=== PATIENT | male | born 1985 | race Two or more races ===

== ENCOUNTER 2018-04-08 02:28 | Emergency (ER) | payer SELFPAY ==
[2018-04-08] MEDS ORDERED: Tdap Vaccine 0.5 ml Vial (10-64 yrs) IM ONE ×2 (03:06→07:20)
--- NOTE | 2018-04-08 03:06 | ED PDOC ---
HPI: Psych/Substance Abuse Chief Complaint (Provider): PSYCH EVAL History Per: Patient (32 Y/O MALE HERE FOR EVALUATION OF CUTTING SELF LEFT ARM TODAY. ADMITS ETOH. DENIES ANY SUICIDAL IDEATION. STATES HIS CALLED AMBULANCE.) <Ezra Gibbs - Last Filed: 04/08/18 06:17> <Lima Adrian - Last Filed: 04/09/18 19:35> Time Seen by Provider: 04/08/18 03:05 Chief Complaint (Nursing): Psychiatric Evaluation Past Medical History Reviewed: Historical Data, Nursing Documentation, Vital Signs Vital Signs: Last Vital Signs Temp 97.6 F 04/08/18 02:40 Pulse 78 04/08/18 02:40 Resp 18 04/08/18 02:40 BP 113/76 04/08/18 02:40 Pulse Ox 99 04/08/18 02:40 - Family History Family History: States: No Known Family Hx <Ezra Gibbs - Last Filed: 04/08/18 06:17> Reviewed: Historical Data Vital Signs: Last Vital Signs Temp 97.7 F 04/08/18 07:50 Pulse 75 04/08/18 07:50 Resp 16 04/08/18 07:50 BP 113/75 04/08/18 07:50 Pulse Ox 97 04/08/18 07:50 - Medical History PMH: No Chronic Diseases - Surgical History Surgical History: No Surg Hx <Lima Adrian A - Last Filed: 04/09/18 19:35> - Allergies Allergies/Adverse Reactions: Allergies Allergy/AdvReac Type Severity Reaction Status Date / Time Unobtainable Allergy Verified 04/08/18 03:02 Review of Systems ROS Statement: Except As Marked, All Systems Reviewed And Found Negative <Ezra Gibbs - Last Filed: 04/08/18 06:17> ROS Statement: Except As Marked, All Systems Reviewed And Found Negative <Lima Adrian - Last Filed: 04/09/18 19:35> Physical Exam - Reviewed Nursing Documentation Reviewed: Yes Vital Signs Reviewed: Yes - Physical Exam Appears: Positive for: Well, Non-toxic, No Acute Distress Head Exam: Positive for: ATRAUMATIC, NORMAL INSPECTION, NORMOCEPHALIC Skin: Positive for: Normal Color, Warm, DRY Eye Exam: Positive for: EOMI, Normal appearance, PERRL ENT: Positive for: Normal ENT Inspection Neck: Positive for: Normal, Painless ROM Cardiovascular/Chest: Positive for: Regular Rate, Rhythm Respiratory: Positive for: CNT, Normal Breath Sounds Gastrointestinal/Abdominal: Positive for: Normal Exam, Soft Back: Positive for: Normal Inspection Extremity: Positive for: Normal ROM, Other (MULTIPLE SUPERFICIAL ABRASIONS NOTED LEFT DISTAL FOREARM.) Neurologic/Psych: Positive for: Alert, Oriented <Ezra Gibbs - Last Filed: 04/08/18 06:17> - Reviewed Nursing Documentation Reviewed: Yes <Lima Adrian - Last Filed: 04/09/18 19:35> - Laboratory Results Result Diagrams: 04/08/18 03:58 04/08/18 03:58 - ECG O2 Sat by Pulse Oximetry: 99 <Ezra Gibbs - Last Filed: 04/08/18 06:17> - Laboratory Results Result Diagrams: 04/08/18 03:58 04/08/18 03:58 <Lima Adrian - Last Filed: 04/09/18 19:35> Disposition - Patient ED Disposition Is Patient to be Admitted: Transfer of Care - Disposition Disposition Time: 06:15 Patient Signed Over To: Lima Adrian Handoff Comments: PENDING CRISIS EVAL <Ezra Gibbs - Last Filed: 04/08/18 06:17> Counseled Patient/Family Regarding: Studies Performed, Diagnosis - Disposition Disposition: Transfer of Care Patient Signed Over To: Nick Ash <Lima Adrian - Last Filed: 04/09/18 19:35> - Clinical Impression Clinical Impression: Deliberate self-cutting, Alcohol ingestion, Adjustment disorder - Disposition Referrals: [facility] [Outside] Condition: FAIR Instructions: Adjustment Disorder Forms: [employer] (Welsh)
[2018-04-08 04:12] LABS: BASO % 0.3 % (0.0-2.0); EOS % 0.5 % (0.0-4.0); HEMOGLOBIN 16.4 g/dL (12.0-18.0); LYMPH # 1.4 K/uL (1.0-4.3); LYMPH % 23.2 % (20.0-40.0); MEAN CELL VOLUME 84.3 fl (80.0-94.0); MEAN CORPUSCULAR HEMOGLOBIN 29.2 pg (27.0-31.0); MEAN CORPUSCULAR HGB CONC 34.7 g/dL (33.0-37.0); MEAN PLATELET VOLUME 8.8 fl (7.2-11.7); MONO # 0.3 K/uL (0.0-0.8); MONO % 4.9 % (0.0-10.0); NEUT # 4.3 K/uL (1.8-7.0); NEUT % 71.1 % (50.0-75.0); NRBC % 0.1 % (0.0-0.0); RBC 5.6 Mil/uL (4.40-5.90); RED CELL DISTRIBUTION WIDTH 14.1 % (11.5-14.5); WHITE BLOOD COUNT 6.1 K/uL (4.8-10.8)
[2018-04-08 04:24] LABS: ALB/GLOB RATIO 1.5 (1.0-2.1); ALBUMIN 4.8 g/dL (3.5-5.0); ALT/SGPT 38 U/L (21-72); AST/SGOT 36 U/L (17-59); BLOOD UREA NITROGEN 10 mg/dl (9-20); CALCIUM 9.1 mg/dL (8.4-10.2); GFR NON-AFRICAN AMERICAN > 60
--- NOTE | 2018-04-08 07:33 | ED PDOC ---
- Laboratory Results Result Diagrams: 04/08/18 03:58 04/08/18 03:58 - ECG O2 Sat by Pulse Oximetry: 99 - Progress Re-evaluation Time: 07:31 Condition: Improved (Awake alert oriented x 3 No focal neuro deficits. Denies SI /HI) Disposition - Clinical Impression Clinical Impression: Deliberate self-cutting, Alcohol ingestion, Adjustment disorder - POA Present On Arrival: None - Disposition [facility]errals[facility] Disposition: Routine/Home Disposition Time: 07:32 Condition: FAIR Instructions: Adjustment Disorder
[2018-04-08 08:00] VITALS: BP 113/75; PULSE 75; RESP 16; TEMP 97.7; O2SAT 97
[2018-04-08 08:04] LABS: URINE BACTERIA OCC (<OCC); URINE BILIRUBIN NEGATIVE (NEGATIVE); URINE BLOOD NEGATIVE (NEGATIVE); URINE CLARITY SLIGHTY-CLOUDY (Clear); URINE COLOR YELLOW (YELLOW); URINE GLUCOSE (UA) NEG (Normal); URINE LEUKOCYTE ESTERASE NEG Leu/uL (Negative); URINE PROTEIN NEGATIVE (NEGATIVE); URINE UROBILINOGEN 0.2-1.0 mg/dL (0.2-1.0)
[2018-04-08 08:06] LABS: BARBITURATES, UR NEGATIVE (NEGATIVE); BENZODIAZEPINES, UR NEGATIVE (NEGATIVE); OPIATES, UR NEGATIVE (NEGATIVE); PHENCYCLIDINE, UR NEGATIVE (NEGATIVE)
== END 2018-04-08 07:50 | disposition home or self-care (01) ==
LOC: H.ER 02:28
DX: F43.20 Adjustment disorder, unspecified (principal); X78.9XXA Intentional self-harm by unspecified sharp object, initial encounter; F10.10 Alcohol abuse, uncomplicated
CPT/HCPCS: 80053; 81003; 85025; 90471; 90715; 99284; G0480